=== PATIENT | male | born 1980 | race Two or more races ===

== ENCOUNTER 2017-07-25 18:57 | Emergency (ER) | payer SELFPAY ==
[~2017-07-25] VITALS: Ht 177.8 cm; Wt 96.2 kg
[2017-07-25 19:39] VITALS: BP 130/78
[2017-07-25] MEDS ORDERED: LIDOCAINE 1% HCL (LOCAL ANESTH.) INJ 20ML MDV IJ ONE (19:45)
== END 2017-07-25 21:56 | disposition home or self-care (01) ==
LOC: EDBD 18:59 → ER 18:59
DX: S63.284A Dislocation of proximal interphalangeal joint of right ring finger, initial encounter (principal); W22.8XXA Striking against or struck by other objects, initial encounter; Y93.89 Activity, other specified; Y99.8 Other external cause status; Y92.89 Other specified places as the place of occurrence of the external cause
CPT/HCPCS: 26770; 73130; 73140; 99152; 99285; J2001